=== PATIENT | female | born 1995 | race Caucasian/White ===

== ENCOUNTER 2020-06-28 20:39 | Emergency (ER) | payer BC, MEDICAID ==
[~2020-06-28] VITALS: Ht 160 cm; Wt 80.9 kg
[2020-06-28 20:47] VITALS: BP 127/82
--- NOTE | 2020-06-28 20:54 | NUR ---
INTIAL PT CONTACT. PT PRESENTS TO ED C/O VAGINAL BLEEDING X14 DAYS. PT ALSO C/O CRAMPING AND LOWER ABD/PELVIC PAIN. PT RECEIVED DEPO SHOT FOR CONTROL, LAST WAS APRIL. PT STATES "I NORMALLY HAVE A LITTLE BLEEDING EVERY MONTH BUT IT NEVER LASTS LONG AND NEVER HAS CRAMPING LIKE THIS". PT SITTING UPRIGHT ON CATE FERRO, VSS. PT AWAITING ERP. CALL LIGHT IN REACH. SIGNIFICANT OTHER AT BEDSIDE.
--- NOTE | 2020-06-28 21:08 | NUR ---
ERP AT BEDSIDE
--- NOTE | 2020-06-28 21:25 | NUR ---
PT TO US
[2020-06-28 21:31] LABS: BASOPHILS % (AUTO) 1 % (0-1); EOSINOPHILS % (AUTO) 1 % (1-7); LYMPHOCYTES % (AUTO) 41 % (22-44); MEAN CORPUSCULAR HEMOGLOBIN 28.1 pg (27.0-34.8); MEAN CORPUSCULAR HGB CONC 34.5 g/dL (32.4-35.8); MONOCYTES % (AUTO) 6 % (2-9); NEUTROPHILS % (AUTO) 51 % (42-75); PLATELET COUNT 289 x10^3/uL (130-400); RED BLOOD COUNT 5.28 x10^6/uL (3.82-5.3); RED CELL DISTRIBUTION WIDTH 13.2 % (9.6-15.2)
[2020-06-28 21:32] LABS: MD NO
[2020-06-28 21:40] LABS: ALANINE AMINOTRANSFERASE 26 U/L (12-78); ANION GAP 6 mmol/L (5-15); CALCIUM 8.9 mg/dL (8.5-10.1); CHLORIDE 108 mmol/L (98-107); CREATININE 0.92 mg/dL (0.55-1.02)
[2020-06-28 21:44] LABS: ALKALINE PHOSPHATASE 66 U/L (45-117); TOTAL PROTEIN 8.1 g/dL (6.4-8.2)
--- NOTE | 2020-06-28 22:14 | NUR ---
Patient given discharge instructions and they have confirmed that they understand the instructions. Patient ambulatory with steady gait.
== END 2020-06-28 22:20 | disposition home or self-care (01) ==
LOC: ED 21:50
DX: N93.8 Other specified abnormal uterine and vaginal bleeding (principal); N92.4 Excessive bleeding in the premenopausal period; Z90.89 Acquired absence of other organs; Z90.49 Acquired absence of other specified parts of digestive tract; J45.909 Unspecified asthma, uncomplicated
CPT/HCPCS: 36415; 76856; 80053; 84703; 85025; 99284